=== PATIENT | female | born 1950 | race Caucasian/White ===

== ENCOUNTER → 2021-11-27 | Outpatient (CLI) | payer MEDICARE, OTHER ==
[~2021-11-27] MED LIST: CATHETER FLUSH 10 ML SYR IVP PRN; REGADENOSON 0.4 MG/5 ML SYR (LEXISCAN) IV ONE
[2021-11-27 13:01] VITALS: BP 163/67
--- NOTE | 2021-11-27 21:33 | STRESS TEST ---
DATE OF SERVICE: 11/27/2021 RESTING AND POST REGADENOSON TECHNETIUM-99M TETROFOSMIN SPECT CT IMAGING ORDERING PHYSICIAN: Dr. Villar. CLINICAL DIAGNOSIS: Chest pain. Baseline images were carried out after injection of 10.85 mCi of technetium-99m Tetrofosmin. This was followed by 0.4 mg Regadenoson and 30 mCi of technetium-99m Tetrofosmin for stress imaging. The electrocardiogram showed sinus rhythm at baseline. It did not change significantly with regadenoson infusion. The patient noted shortness of breath and exhaustion following regadenoson infusion, which resolved in a few minutes. Review of images at rest and following stress indicates a relatively small inferoapical perfusion defect that appears to be transient. SDS is 5. Gated images show normal regional wall motion, normal global left ventricular systolic function. Left ventricular ejection fraction is calculated to be 78%. CONCLUSIONS: 1. This study is suggestive of a small amount of inferoapical ischemia. 2. Normal global left ventricular systolic function. 3. Normal regional wall motion. 4. Left ventricular ejection fraction is calculated to be 78%. Job ID: [id number] DocumentID: [id number] Dictated Date: 11/27/2021 17:51:57 Fleet Sales Manager Date: 11/27/2021 21:32:00 Dictated By: LAKHWINDER VILLAR MD, MA, FACP, FACC, MTDD
== END ==
LOC: CARD 10:13
PROVIDERS: ATTEND Internal Medicine Cardiovascular Disease
DX: I35.1 Nonrheumatic aortic (valve) insufficiency (principal)
CPT/HCPCS: 78452; 93017; 93306; A9502

== ENCOUNTER 2021-12-04 06:49 | Day surgery (SDC) | payer MEDICARE, OTHER ==
[2021-12-04] VITALS (8 sets, daily range): BP systolic 110–168; BP diastolic 51–75
[~2021-12-04] VITALS: Ht 162.6 cm; Wt 88.8 kg
[2021-12-04] MEDS ORDERED: HEParin (CATH LAB) 2,000 ML IV ONE (06:57)
[2021-12-04] MEDS ORDERED: LIDOCAINE 1% INJ 20 ML VIAL ONE (06:57)
[2021-12-04] MEDS ORDERED: NS IV 1000 ML 1,000 ML ONE (06:57)
[2021-12-04] MEDS ORDERED: NS IV 1000 ML 1,000 ML IV SCH ×2 (07:00→10:00)
[2021-12-04 07:18] LABS: HEMATOCRIT 40 % (35-52); HEMOGLOBIN 14.3 g/dL (11.5-16.0); MEAN CORPUSCULAR HEMOGLOBIN 31 pg (25-34); MEAN CORPUSCULAR HGB CONC 36 g/dL (32-36); MEAN CORPUSCULAR VOLUME 86 fL (80-99); MEAN PLATELET VOLUME 10.4 fL (9.0-12.2); PLATELET COUNT 150 10^3/uL (130-400); WHITE BLOOD COUNT 4.9 10^3/uL (4.3-11.0)
[2021-12-04 07:33] LABS: ALBUMIN 4.3 GM/DL (3.2-4.5); POTASSIUM 3.3 MMOL/L (3.6-5.0)
[2021-12-04 07:34] LABS: CALCIUM 9.6 MG/DL (8.5-10.1); INR 0.9 (0.8-1.4); PROTHROMBIN TIME PATIENT 12.5 SEC (12.2-14.7)
[2021-12-04 07:36] LABS: TOTAL PROTEIN 7.2 GM/DL (6.4-8.2)
[2021-12-04 07:38] LABS: BILIRUBIN,TOTAL 0.6 MG/DL (0.1-1.0)
[2021-12-04 07:39] LABS: CREATININE SERUM 0.92 MG/DL (0.60-1.30)
[2021-12-04] MEDS ORDERED: POTA10TA37 PO (07:48)
[2021-12-04] MEDS ORDERED: HYDR12.56 PO (07:48)
[2021-12-04] MEDS ORDERED: CALC-696 PO (07:48)
[2021-12-04] MEDS ORDERED: DOCU-26 PO (07:48)
[2021-12-04] MEDS ORDERED: LOVA40TA2 PO (07:48)
[2021-12-04] MEDS ORDERED: OMG1KC PO (07:48)
[2021-12-04] MEDS ORDERED: OMEP20CA18 PO (07:48)
[2021-12-04] MEDS ORDERED: FURO40TA4 PO (07:48)
[2021-12-04] MEDS ORDERED: LEVO50CA4 PO (07:48)
[2021-12-04] MEDS ORDERED: LOSA50TA63 PO (07:48)
[2021-12-04] MEDS ORDERED: ESTR1TAB27 PO (07:48)
[2021-12-04] MEDS ORDERED: MELO15TA14 PO (07:48)
[2021-12-04] MEDS ORDERED: fentaNYL INJ 100 MCG/2 ML AMP ONE (09:18)
[2021-12-04] MEDS ORDERED: MIDAZOLAM 5 MG/5 ML (VERSED) VIAL ONE (09:18)
[2021-12-04] MEDS ORDERED: diphenhydrAMINE 50 MG/ML INJ (BENADRYL) ONE (09:43)
--- NOTE | 2021-12-04 09:54 | Cardiac Procedure Note-CS/ASA ---
Pre-Procedure Note Pre-Op Procedure Note H&P Reviewed The H&P was reviewed, patient examined and no changes noted. Date H&P Reviewed: December 04, 2021 Time H&P Reviewed: 09:20 Conscious Sedation Pre-Proced Time 09:20 ASA Score 3 For ASA 3 and 4: Consider anesthesia and medical clearance. Also, for patients with a history of failed moderate sedation consider anesthesia. Airway Lungs Heart ASA score ASA 1: a normal healthy patient ASA 2: a patient with a mild systemic disease (mid diabetes, controlled hypertension, obesity ASA 3: a patient with a severe systemic disease that limits activity (angina, COPD, prior Myocardial infarction) ASA 4: a patient with an incapacitating disease that is a constant threat to life (CHF, renal failure) ASA 5: a moribund patient not expected to survive 24 hrs. (ruptured aneurysm) ASA 6: a declared brain- patient whose organs are being harvested. For emergent operations, add the letter E after the classification Mallampati Classification Grade 2 Sedation Plan Analgesia, Amnesia, Plan communicated to team members, Discussed options with patient/fam, Discussed risks with patient/fam The patient is an appropriate candidate to undergo the planned procedure, sedation, and anesthesia. The patient immediately re-assessed prior to indication. LAKHWINDER PATTERSON MD FACP FAC CCDS December 04, 2021 09:54
[2021-12-04] MEDS ORDERED: PATIENT MAY USE OWN MEDS, ALL PO SCH (10:00)
--- NOTE | 2021-12-04 10:00 | Discharge Inst-Cardiology ---
Discharge Inst-Cardiac Discharge Medications Continued Medications: Calcium Citrate/Vitamin D3 (Citracal + D Maximum Caplet) 315MG-6.25 Tablet 1 EACH PO BID, TAB Docusate Sodium (Stool Softener) 100 Mg Capsule 100 MG PO DAILY, CAP Estradiol (Estrace Tablet) 1 Mg Tablet 1 MG PO DAILY, TAB Furosemide (Furosemide) 40 Mg Tablet 40 MG PO DAILY, TAB Levothyroxine Sodium (Levothyroxine) 50 Mcg Capsule 50 MCG PO DAILY, CAP Losartan Potassium (Losartan Potassium) 50 Mg Tablet 25 MG PO BID, TAB Lovastatin (Lovastatin) 40 Mg Tablet 40 MG PO DAILY, TAB Meloxicam (Mobic) 15 Mg Tablet 15 MG PO DAILY, TAB Voss 3 Polyunsat Fatty Acids (Fish Oil 1,000 mg Capsule) 340 Mg-1,000 Mg Cap 1000 MG PO BID, CAP Omeprazole (Omeprazole) 20 Mg Capsule.dr 20 MG PO BID, CAP Potassium Chloride (Potassium Chloride) 10 Meq Tab.er.prt 10 MEQ PO DAILY Discontinued Medications: Hydrochlorothiazide (Hydrochlorothiazide) 12.5 Mg Tablet 12.5 MG PO DAILY, TAB LAKHWINDER PATTERSON MD FACP [facility] CCDS December 04, 2021 10:00
--- NOTE | 2021-12-04 10:00 | Discharge Inst-Post CATH ---
Discharge Inst-CATH/EP Post Cardiac Cath/EP D/C Inst Follow Up/Plan F/u with Dr Villar in 2-3 weeks ACTIVITY * Go Home directly and rest. * Limit activity of the leg (or wrist if it was used) for 7 days including aerobics, swimming, jogging, bicycling, etc. * Restrict stair-climbing for 7 days if possible, if not, climb up with your non-cath leg, then bring together on the same step. * Avoid lifting, pushing, pulling or excessive movement of the affected e xtremity for 7 days. * Customary sexual activity may be resumed after 2 days-use caution not to use a position that strains or causes pain to the affected extremity. * No driving for 24 hours. * NO SMOKING. * Avoid straining for bowel movements for 7 days. * Gentle walking on level ground is allowed. * Returning to work will depend on the type of procedure and the results. Your doctor will discuss this with you. CALL YOUR DOCTOR FOR ANY OF THE FOLLOWING: *If bleeding from the puncture site occurs- Apply gentle pressure to site with clean cloth and call your doctor or EMS. * If a knot or lump forms under the skin, increases in size, or causes pain. * If bruising appears to be worsening or moving further down your leg instead of disappearing. * Temperature above 101 F. CARE OF YOUR GROIN INCISION; * Bruising or purple discoloration of the skin near the puncture site is common. * You may shower only, no bathtub bathing for 5 days. Be careful to avoid slipping as your leg may feel stiff. * If a closure device was used on your femoral artery, please see the attached guide regarding care of the device and your leg. * Leave dressing on FOR 24 hours. CARE OF YOUR WRIST INCISION; * Bruising or purple discoloration of the skin near the puncture site is common. * You may shower. * DO NOT submerge wrist. * Leave dressing on FOR 24 hours. LAKHWINDER VILLAR MD FACP FAC CCDS December 04, 2021 10:00
[2021-12-04] MEDS ORDERED: KCL 20 MEQ TAB (K-DUR) PO NR (10:05)
--- NOTE | 2021-12-04 11:36 | CARDIAC CATHETERIZATION ---
DATE OF SERVICE: 12/04/2021 CARDIAC CATHETERIZATION REPORT INDICATION FOR PROCEDURE: The patient is a 71-year-old lady, who has been experiencing chest discomfort and a myocardial perfusion imaging study was indicative of inferoapical ischemia. Cardiac catheterization was carried out after having obtained an informed consent. PROCEDURE IN DETAIL: She was brought to the cardiac catheterization laboratory in a fasting state. Right groin was prepared and draped in the usual sterile fashion. Lidocaine 1% was used for local anesthesia. Modified Seldinger technique was used to advance a 5-Montenegrin sheath in the right femoral artery, 5-Mont[place]grin JL4 catheter was used for left coronary angiography, 5-[place]grin JR4 catheter was used for right coronary angiography, and 5-Montenegrin pigtail catheter was used for left heart catheterization. Left ventricular angiography was not performed in order to conserve contrast. Left ventricular ejection fraction has previously been determined to be 60% to 65% on echocardiography of 11/27/2021. Angiography of the right femoral artery was carried out through the sheath. Mynx was used to achieve hemostasis. She tolerated the procedure well. HEMODYNAMICS: Left ventricular end-diastolic pressure following coronary angiography was 15 mmHg. There was no significant pressure gradient on pullback across the aortic valve. Ascending aortic pressure was 156/79 with a mean of 109 mmHg. CORONARY ANGIOGRAPHY: Left main coronary artery is free of significant disease. Left anterior descending artery has 40% to 50% stenosis in its mid portion at the site of the origin of a small caliber second diagonal branch. Left circumflex artery has mild plaques. Right coronary artery is dominant and has mild plaques. CONCLUSIONS: 1. Mild coronary artery disease including 40% to 50% mid vessel stenosis of the left anterior descending. 2. Mildly elevated left ventricular end-diastolic pressure. DISCUSSION AND RECOMMENDATIONS: Ejection fraction has previously determined to be normal on echocardiography. We recommended continuing conservative management. Her serum potassium level is somewhat low. This is probably because she is on two diuretics. We are replenishing potassium today and we have advised her to discontinue hydrochlorothiazide while continuing furosemide. The rest of regimen, including supplemental potassium and angiotensin receptor blockers are being continued. Outpatient followup is advised. Job ID: [id number] DocumentID: [id number] Dictated Date: 12/04/2021 10:05:49 Race Car Driver Date: 12/04/2021 11:35:33 Dictated By: LAKHWINDER PATTERSON MD, MA, FACP, FACC,
== END 2021-12-04 13:05 | disposition home or self-care (01) ==
LOC: CATH 06:49 → SDC 10:14 → CATH 13:05
PROVIDERS: ATTEND Internal Medicine Cardiovascular Disease
DX: I25.10 Atherosclerotic heart disease of native coronary artery without angina pectoris (principal); I10 Essential (primary) hypertension; Z87.891 Personal history of nicotine dependence
CPT/HCPCS: 80053; 80061; 85027; 85610; 85730; 87081; 93005; 93458; C1760; C1894; 36415